=== PATIENT | female | born 1990 | race Caucasian/White ===

== ENCOUNTER 2021-02-20 01:37 | Inpatient (IN) | payer BC, OTHER ==
[2021-02-20] MEDS ORDERED: ACETAMINOPHEN TAB 325 MG TAB PO PRN (02:00)
[2021-02-20] MEDS ORDERED: NALOXONE 0.4 MG/ML 1 ML VIAL IV PRN (02:00)
[2021-02-20] MEDS ORDERED: AMPICILLIN-SULBACTAM 3 GM in SODIUM CHLORIDE 0.9% 100 ML IVPB STA (02:00)
--- NOTE | 2021-02-20 02:02 | ED ---
Recheck HPI - General Chief Complaint: Recheck/Abnormal Lab/Rx Stated Complaint: Appendicitis Time Seen by Provider: 02/20/21 01:59 Source: EMS Mode of arrival: EMS Limitations: no limitations - Related Data Home Medications Medication Instructions Recorded Confirmed Mbe-Apfv-Cuyrd Acid 1 each PO DAILY 01/16/15 05/12/15 [-U Capsule] Previous Rx's Medication Instructions Recorded Acetaminophen-Codeine 300-30mg 1 - 2 each PO Q4HR PRN #30 tab 05/12/15 [Tylenol w/codeine #3] Allergies Allergy/AdvReac Type Severity Reaction Status Date / Time ibuprofen Allergy Anaphylaxis Verified 04/14/15 13:29 Review of Systems ROS Statement: Those systems with pertinent positive or pertinent negative responses have been documented in the HPI. ROS Other: All systems not noted in ROS Statement are negative. Past Medical History Past Medical History: No Reported History History of Any Multi-Drug Resistant Organisms: None Reported Additional Past Surgical History / Comment(s): Patient has a wisdom tooth extraction. Laparoscopic 01/02/21 Past Anesthesia/Blood Transfusion Reactions: No Reported Reaction Past Psychological History: No Psychological Hx Reported Smoking Status: Never smoker Past Alcohol Use History: None Reported Past Drug Use History: None Reported General Exam Limitations: no limitations Course Vital Signs 02/20/21 01:51 Temperature 98.4 F Pulse Rate 106 H Respiratory 20 Rate Blood Pressure 125/78 O2 Sat by Pulse 98 Oximetry Disposition Clinical Impression: Acute appendicitis Disposition: ADMITTED IP TO THIS HOSP Condition: Good Is patient prescribed a controlled substance at d/c from ED?: No Referrals: Nonstaff,Physician [Primary Care Provider] - 1-2 days
[2021-02-20] MEDS: MORPHINE SULFATE 4 MG/ML SYRINGE IV PRN ×4 (03:25→16:48)
[2021-02-20] MEDS: ONDANSETRON 4 MG/2 ML VIAL IVP PRN ×3 (03:25→20:26)
[2021-02-20] MEDS: DEXTROSE 5%-0.45% NACL 1,000 ML IV SCH ×2 (03:25→13:11)
[2021-02-20] MEDS ORDERED: ACETAMINOPHEN IV (For NPO) 1,000 MG in EMPTY BAG 1 BAG IVPB ONE (04:47)
[2021-02-20] MEDS ORDERED: SCOPOLAMINE 1.5MG/72HR PATCH TRANSDERM STA (07:36)
[2021-02-20 08:14] LABS: Basophils # (A) 0.1 k/uL (0-0.2); Basophils % (A) 0 %; Eosinophils # (A) 0.1 k/uL (0-0.7); Eosinophils % (A) 0 %; HGB 13.9 gm/dL (11.4-16.0); Lymphocytes # (A) 1.3 k/uL (1.0-4.8); Lymphocytes % (A) 9 %; MCH 31.1 pg (25.0-35.0); MCV 91.5 fL (80.0-100.0); Mean Platelet Volume 7.9; Monocytes # (A) 0.8 k/uL (0-1.0); Monocytes % (A) 5 %; Neutrophils # (A) 13.3 k/uL (1.3-7.7); Neutrophils % (A) 86 %; Platelet Count 263 k/uL (150-450); RBC 4.48 m/uL (3.80-5.40); RDW 12.6 % (11.5-15.5); WBC 15.6 k/uL (3.8-10.6)
[2021-02-20 08:30] LABS: ALT 11 U/L (4-34); African American GFR (CKD) >90 (>60 ml/min/1.73 sqM); Anion Gap 10 mmol/L; Blood Urea Nitrogen 11 mg/dL (7-17); Calcium 8.5 mg/dL (8.4-10.2); Carbon Dioxide 19 mmol/L (22-30); Chloride 107 mmol/L (98-107); Glucose 122 mg/dL (74-99); Non-African American GFR(CKD) >90 (>60 ml/min/1.73 sqM); Sodium 136 mmol/L (137-145); Total Bilirubin 0.9 mg/dL (0.2-1.3); Total Protein 6.9 g/dL (6.3-8.2)
[2021-02-20 08:35] LABS: AST 33 U/L (14-36); Alkaline Phosphatase 66 U/L (38-126); Potassium 4.9 mmol/L (3.5-5.1)
[2021-02-20] MEDS: PANTOPRAZOLE 40 MG/10 ML VIAL IV SCH (08:53)
[2021-02-20] MEDS: AMPICILLIN-SULBACTAM 3 GM in SODIUM CHLORIDE 0.9% 100 ML IVPB SCH ×2 (11:34→20:29)
--- NOTE | 2021-02-20 12:36 | P.GSHP ---
History of Present Illness H&P Date: 02/20/21 CHIEF COMPLAINT: Right lower quadrant abdominal pain with appendicitis for over 1 day. HISTORY OF PRESENT ILLNESS: The patient 30-year-old female who reports recent history of large ovarian cyst over 10 cm removed via laparoscopic approach over a month and a half ago in 01/03/2021 at [facility] in [place], [place]. She had been recovering. She reported intermittent right lower quadrant abdominal pain for the last few weeks. She reports the pain became severe intensity as of yesterday 1 day ago. She went to [place] emergency room initially where due to long wait times for evaluation, she went to [facility]. She had additional workup demonstrating appendicitis. She transferred to [facility] for surgical intervention. She reports her pain is still moderate to severe. No current emesis or nausea. She is admitted for appendicitis. PAST MEDICAL HISTORY: See list and reviewed PAST SURGICAL HISTORY: See list and reviewed CURRENT MEDICATIONS: See list and reviewed ALLERGIES: See list and reviewed SOCIAL HISTORY: See list and reviewed FAMILY HISTORY: See list and reviewed REVIEW OF ORGAN SYSTEMS: CONSTITUTIONAL: No fever, no chills. She is morbidly obese, BMI 36.5. HEENT: Denies any trouble with vision, hearing or nosebleeds. No difficulty swallowing. LYMPHATIC: The patient denies any lumps and bumps around the neck. ENDOCRINE: Denies any thyroid disorders. Denies any blood sugar glucose intolerance. RESPIRATORY: Denies shortness of breath including chronic cough. CARDIOVASCULAR: Denies history of chest pain with exertion. GASTROINTESTINAL: Denies regurgitation of bile at night as well as intermittent nausea. No blood in stools. GENITOURINARY: Denies any blood in urine or increased urinary frequency. Recent gynecological excision of right ovarian cyst over 10 cm. MUSCULOSKELETAL: Denies current joint arthritis. NEUROLOGIC: Denies any numbness or tingling along the distal extremities. No seizure disorders or headaches. PSYCHIATRIC: Denies any depression or suicidal ideation. HEMATOLOGIC: Denies any abnormal bleeding or bruising. PHYSICAL EXAMINATION: GENERAL: Well-developed female in mild distress. HEENT: No sclera icterus. Extraocular movements grossly intact. Moist buccal mucosa. Head is atraumatic, normocephalic. Hears conversational speech. No nasal drainage. Wears glasses. NECK: Supple without lymphadenopathy. No JV distention. CHEST: Non-labored respirations and equal bilateral excursions. CARDIOVASCULAR: Regular rate and rhythm. Palpable 2+ radial pulses. ABDOMEN: Focal tenderness right lower quadrant. MUSCULOSKELETAL: No clubbing, cyanosis or edema. NEUROLOGIC: No focal or lateralizing signs. PSYCH: Appropriate affect. Alert and oriented to person, place and time. SKIN: Well perfused. Good skin turgor. LABS: Reviewed. White blood cell count elevated over 15,000. UHCG negative. RECORDS: Records from [facility] confirms coronavirus negative. STUDIES: CT of the abdomen and pelvis from the outside facility independently reviewed demonstrating large stool-filled cecum. Large fluid collection cystic will along the right adnexa. Smaller adnexal cystic lesion on the left. Free fluid in the pelvis identified. The base of the appendix is identified to be patent. No gross inflammatory changes suggestive of acute appendicitis. Hounsfield units of adnexa consistent with hemorrhagic cyst RADIOLOGY: I personally called the radiologist Dr. Morrow for similar review of computed tomography scan confirming fluid collection in the pelvis as well as no definitive finding of acute appendicitis. ASSESSMENT: 1. Right lower quadrant pain. 2. History of right ovarian cyst, recurrence 3. Leukocytosis PLAN: 1. Review of her computed tomography scan and in discussion with the radiologist, presentation of right lower quadrant abdominal pain also includes recurrent right ovarian cyst with possible rupture. As the base of the appendix is identifiable without gross inflammatory changes, likely appendicitis is low. 2. Recommend consultation with gynecology for recurrent ovarian cyst. May need transvaginal ultrasound. 3. Continue IV antibiotics. 4. Initially robotic appendectomy was described however given her additional gynecological findings, recommend gynecological assessment. Past Medical History Past Medical History: No Reported History Additional Past Medical History / Comment(s): pcos endometrosis History of Any Multi-Drug Resistant Organisms: None Reported Additional Past Surgical History / Comment(s): Patient has a wisdom tooth extraction. Laparoscopic adhesions and cyst removal 01/02/21 Past Anesthesia/Blood Transfusion Reactions: No Reported Reaction Past Psychological History: No Psychological Hx Reported Smoking Status: Never smoker Past Alcohol Use History: None Reported Past Drug Use History: None Reported - Past Family History Mother History Unknown: Yes Medications and Allergies Home Medications Medication Instructions Recorded Confirmed Type Lo Loestrin 1 tab PO HS 02/20/21 02/20/21 History Multivitamins, Thera [Multivitamin 1 tab PO DAILY 02/20/21 02/20/21 History (formulary)] Ondansetron Odt [Zofran Odt] 4 mg PO Q8H PRN 02/20/21 02/20/21 History metFORMIN HCL [Glucophage] 500 mg PO TID 02/20/21 02/20/21 History Allergies Allergy/AdvReac Type Severity Reaction Status Date / Time ibuprofen Allergy Anaphylaxis Verified 02/20/21 07:07 Surgical - Exam Vital Signs Temp Pulse Resp BP Pulse Ox 98.4 F 106 H 20 125/78 98 02/20/21 01:51 02/20/21 01:51 02/20/21 01:51 02/20/21 01:51 02/20/21 01:51 Results - Labs 02/20/21 07:19 02/20/21 07:19 Abnormal Lab Results - Last 24 Hours (Table) 02/20/21 02/20/21 Range/Units 07:19 07:19 WBC 15.6 H (3.8-10.6) k/uL Neutrophils # 13.3 H (1.3-7.7) k/uL Sodium 136 L (137-145) mmol/L Carbon Dioxide 19 L (22-30) mmol/L Creatinine 0.42 L (0.52-1.04) mg/dL Glucose 122 H (74-99) mg/dL Diabetes panel 02/20/21 Range/Units 07:19 Sodium 136 L (137-145) mmol/L Potassium 4.9 (3.5-5.1) mmol/L Chloride 107 (98-107) mmol/L Carbon Dioxide 19 L (22-30) mmol/L BUN 11 (7-17) mg/dL Creatinine 0.42 L (0.52-1.04) mg/dL Glucose 122 H (74-99) mg/dL Calcium 8.5 (8.4-10.2) mg/dL AST 33 (14-36) U/L ALT 11 (4-34) U/L Alkaline Phosphatase 66 (38-126) U/L Total Protein 6.9 (6.3-8.2) g/dL Albumin 4.0 (3.5-5.0) g/dL Calcium panel 02/20/21 Range/Units 07:19 Calcium 8.5 (8.4-10.2) mg/dL Albumin 4.0 (3.5-5.0) g/dL Pituitary panel 02/20/21 Range/Units 07:19 Sodium 136 L (137-145) mmol/L Potassium 4.9 (3.5-5.1) mmol/L Chloride 107 (98-107) mmol/L Carbon Dioxide 19 L (22-30) mmol/L BUN 11 (7-17) mg/dL Creatinine 0.42 L (0.52-1.04) mg/dL Glucose 122 H (74-99) mg/dL Calcium 8.5 (8.4-10.2) mg/dL Adrenal panel 02/20/21 Range/Units 07:19 Sodium 136 L (137-145) mmol/L Potassium 4.9 (3.5-5.1) mmol/L Chloride 107 (98-107) mmol/L Carbon Dioxide 19 L (22-30) mmol/L BUN 11 (7-17) mg/dL Creatinine 0.42 L (0.52-1.04) mg/dL Glucose 122 H (74-99) mg/dL Calcium 8.5 (8.4-10.2) mg/dL Total Bilirubin 0.9 (0.2-1.3) mg/dL AST 33 (14-36) U/L ALT 11 (4-34) U/L Alkaline Phosphatase 66 (38-126) U/L Total Protein 6.9 (6.3-8.2) g/dL Albumin 4.0 (3.5-5.0) g/dL Assessment and Plan (1) Hemorrhagic ovarian cyst Current Visit: Yes Status: Acute Code(s): N83.209 - UNSPECIFIED OVARIAN CYST, UNSPECIFIED SIDE SNOMED Code(s): 683196064 (2) Morbid obesity due to excess calories Current Visit: Yes Status: Acute Code(s): E66.01 - MORBID (SEVERE) OBESITY DUE TO EXCESS CALORIES SNOMED Code(s): 615591232 (3) BMI over 35 Current Visit: Yes Status: Acute Code(s): XQA7450 - SNOMED Code(s): 429623804
[2021-02-20] MEDS: ENOXAPARIN 30 MG/0.3 ML SYRINGE SQ SCH (13:42)
[2021-02-20] MEDS: KETOROLAC 15 MG/ML 1 ML VIAL IVP SCH (18:49)
[2021-02-20] MEDS ORDERED: PROPOFOL 10 MG/ML 20 ML VIAL IV ONE (22:13)
[2021-02-20] MEDS ORDERED: NEOSTIGMINE 1 MG/ML 10 ML VIAL ONE (22:13)
[2021-02-20] MEDS ORDERED: HYDROmorphone (PF) 1 MG/ML ONE (22:13)
[2021-02-20] MEDS ORDERED: ROCURONIUM 10 MG/ML (5 ML VIAL) IV ONE (22:13)
[2021-02-20] MEDS ORDERED: GLYCOPYRROLATE 0.2 MG/ML 2 ML VIAL ONE (22:13)
[2021-02-20] MEDS ORDERED: ONDANSETRON 4 MG/2 ML VIAL ONE (22:13)
[2021-02-20] MEDS ORDERED: LIDOCAINE 1% INJ 10MG/ML (20 ML MDV) ONE (22:13)
[2021-02-20] MEDS ORDERED: DEXAMETHASONE SOD PHOSPHATE 4 MG/ML 1 ML VIAL ONE (22:13)
[2021-02-20] MEDS ORDERED: KETOROLAC 15 MG/ML 1 ML VIAL ONE (22:13)
[2021-02-20] MEDS ORDERED: fentaNYL (PF) 50 MCG/ML 2 ML AMP ONE (22:13)
[2021-02-20] MEDS ORDERED: MIDAZOLAM 2 MG/2 ML VIAL ONE (22:13)
[2021-02-20] MEDS ORDERED: SUCCINYLCHOLINE CHLORIDE 100 MG/5 ML SYR IV ONE (22:13)
[2021-02-20] MEDS ORDERED: LACTATED RINGERS 1,000 ML IV ONE ×2 (22:16→22:47)
--- NOTE | 2021-02-20 22:21 | P.HPADDEND ---
H&P Addendum H&P Addendum Date: 02/20/21 Computed tomography scan findings discussed for recurrent ovarian cysts. Patient reports peritonitis due to her recurrent ovarian cyst. With her recurrent right lower quadrant abdominal pain, patient agreed to proceed with appendectomy and abdominal washout for free fluid and hemoperitoneum. Managemen t for recurrent ovarian cyst with inspector floor advised
[2021-02-20] MEDS ORDERED: LIDOCAINE 0.5%-EPI 1:200,000 50 ML VIAL SQ ONE (22:57)
--- NOTE | 2021-02-20 23:36 | P.OP ---
Date of Procedure: 02/20/21 Description of Procedure: SURGEON: GINA BLAS MD Preoperative Diagnosis: 1. Right lower quadrant abdominal pain with peritonitis 2. History of ovarian cysts 3. Endometriosis of the pelvis 4. Morbid obesity due to excess calories, BMI 36.5 5. Leukocytosis Postoperative Diagnosis: 1. Hemoperitoneum with appendicitis due to endometriosis with peritonitis 2. History of ovarian cysts 3. Endometriosis diffuse 4. Morbid obesity due to excess calories, BMI 36.5 5. Leukocytosis 6. Ruptured ovarian hemorrhagic cyst Procedure(s) Performed: 1. Robotic-assisted daVinci Xi diagnostic laparoscopy with drainage of hemoperitoneum, 200 mL. 2. Robotic-assisted daVinci Xi laparoscopic appendectomy Anesthesia: GETA, local Estimated Blood Loss (ml): 5 Pathology: other (appendix) Condition: stable Disposition: floor Operative Findings: 1. At appendiceal tip, large endometrial deposit over 4 cm at right lower quadrant consistent with location of pain 2. Gross hemoperitoneum over 200 mL evacuated 3. Endometrial deposit of the pelvis including ascending colon, cecum, right upper abdominal wall 4. Right ovary without torsion with features of recent ruptured hemorrhagic cyst INDICATIONS: The patient is a 30-year-old female who presents with peritonitis, right lower quadrant abdominal pain. Diagnostic laparoscopy with appendectomy was described. Benefits and risks, including infection, open surgery, and bleeding for additional surgery was discussed at length. Informed consent was obtained. All questions of the patient and family were answered. DESCRIPTION: The patient was transferred to the operating room and placed in supine position. The patient had previously voided. The abdomen was then prepped and draped in standard sterile fashion as Ioban was placed along the abdomen to minimize any contamination of skin floor. After a timeout protocol was performed, attention was then brought to the left upper quadrant whereby a 0 degree 5 mm laparoscopic trocar entry was performed. The abdominal cavity was entered and insufflated to 12 mmHg pressure, which was tolerated well. Diagnostic laparoscopy demonstrated no injury to bowel, viscera or mesentery. Next a robotic 8-mm trocar was placed along the left lower quadrant, 10-cm lateral to the midline. A 12 mm port was placed along the left upper quadrant and another 8-mm port left lateral abdominal wall. Ports were placed 8 cm apart from each other including 15-20 cm away from the target anatomy of the right pelvis. The patient was then placed in Trendelenburg position, at least 7 down and right side up at least 7. The robotic da Syeda XI system was primed and [facility] Using atraumatic graspers and vessel sealer, the robotic system was docked and primed as described. Instruments were interchanged by the assistant art director including graspers, robotic stapler and vessel sealer. Next, attention was brought to identify the cecum. A systematic view within the abdominal cavity was started with the small bowel which was unremarkable. Moderate hemoperitoneum was identified along the pelvis of gross blood. At the cecum, endometrial deposit was found. Along the right upper quadrant abdominal wall and flank, endometrial deposits were found. The small bowel was unremarkable for acute pathology such as bowel obstruction. The colon including splenic flexure; redundant. The uterus was boggy and enlarged. Chocolate cyst were identified along the retrouterine peritoneal space. Attention was brought to the appendiceal base where a short less than 3 cm appendix was found with a large endometrial deposit over 4 cm. The mesoappendix was mobilized using vessel sealer. Blue 45 mm robotic staple loads were fired along the base of the appendix. The staple line was hemostatic. Hemostasis was checked prior to undocking the robot. Next, the abdomen was irrigated with 2 L normal saline solution until the abdominal fluid was clear. The robot was undocked. I re-scrubbed into the case. The specimen was removed from the abdominal cavity with an Endo Catch bag through the 12 mm trocar at the left upper quadrant. The port site was closed with 0 Vicryl and Eagle Segura. All instruments and pneumoperitoneum were evacuated from the abdominal cavity. Local anesthetic was infiltrated to all wounds for postop analgesia. All incisions were also cleansed with diluted hydrogen peroxide. The incisions were closed with 4-0 Monocryl. Exofin glue was applied to the rest of the skin incisions. The patient had tolerated the procedure well. The patient was extubated successfully. The patient was transferred to the postanesthesia care unit in stable condition. The patient's family were updated of the findings and please with the level of care.
[2021-02-20] MEDS ORDERED: HYDROmorphone 0.5 MG/0.5 ML SYRINGE IVP ONE (23:40)
[2021-02-21] MEDS: DEXTROSE 5%-0.45% NACL 1,000 ML IV SCH ×2 (00:30→09:02)
[2021-02-21] MEDS: KETOROLAC 15 MG/ML 1 ML VIAL IVP SCH ×3 (00:31→12:00)
[2021-02-21] MEDS: ONDANSETRON 4 MG/2 ML VIAL IVP PRN ×3 (01:30→12:01)
[2021-02-21] MEDS: SIMETHICONE 40 MG/0.6 ML DROPS 2,000 MG/30 ML BOTTLE PO SCH ×2 (01:31→09:06)
[2021-02-21] MEDS: AMPICILLIN-SULBACTAM 3 GM in SODIUM CHLORIDE 0.9% 100 ML IVPB SCH ×2 (02:57→11:29)
[2021-02-21 03:16] VITALS: RESP 18
[2021-02-21 06:39] LABS: Basophils % (A) 0 %; Eosinophils % (A) 1 %; HCT 37.4 % (34.0-46.0); HGB 12.9 gm/dL (11.4-16.0); Lymphocytes # (A) 0.6 k/uL (1.0-4.8); Lymphocytes % (A) 8 %; MCH 31.5 pg (25.0-35.0); MCHC 34.5 g/dL (31.0-37.0); MCV 91.2 fL (80.0-100.0); Mean Platelet Volume 7.8; Monocytes # (A) 0.3 k/uL (0-1.0); Monocytes % (A) 4 %; Neutrophils # (A) 6.3 k/uL (1.3-7.7); Neutrophils % (A) 87 %; Platelet Count 258 k/uL (150-450); RDW 12.5 % (11.5-15.5); WBC 7.3 k/uL (3.8-10.6)
[2021-02-21 07:43] LABS: ALT 9 U/L (4-34); AST 21 U/L (14-36); African American GFR (CKD) >90 (>60 ml/min/1.73 sqM); Albumin 3.3 g/dL (3.5-5.0); Alkaline Phosphatase 70 U/L (38-126); Anion Gap 8 mmol/L; Blood Urea Nitrogen 5 mg/dL (7-17); Calcium 8.5 mg/dL (8.4-10.2); Carbon Dioxide 23 mmol/L (22-30); Chloride 108 mmol/L (98-107); Glucose 142 mg/dL (74-99); Non-African American GFR(CKD) >90 (>60 ml/min/1.73 sqM); Phosphorus 2.6 mg/dL (2.5-4.5); Potassium 4.2 mmol/L (3.5-5.1); Sodium 139 mmol/L (137-145); Total Bilirubin 0.4 mg/dL (0.2-1.3); Total Protein 5.9 g/dL (6.3-8.2)
[2021-02-21 08:24] VITALS: BP 99/62; PULSE 87; TEMP 98.2
[2021-02-21] MEDS ORDERED: metFORMIN 500 MG TAB PO SCH (09:00)
[2021-02-21] MEDS: PANTOPRAZOLE 40 MG/10 ML VIAL IV SCH (09:04)
[2021-02-21] MEDS: ENOXAPARIN 30 MG/0.3 ML SYRINGE SQ SCH (09:06)
--- NOTE | 2021-02-21 14:14 | P.DS ---
Providers Date of admission: 02/20/21 23:37 Expected date of discharge: 02/21/21 Attending physician: Cindy Savage Primary care physician: Physician Nonstaff Hospital Course: Discharge diagnosis 1. Hemoperitoneum with appendicitis due to endometriosis with peritonitis 2. History of ovarian cysts 3. Endometriosis diffuse 4. Morbid obesity due to excess calories, BMI 36.5 5. Leukocytosis 6. Ruptured ovarian hemorrhagic cyst Hospital course The patient 30-year-old female who reports recent history of large ovarian cyst over 10 cm removed via laparoscopic approach over a month and a half ago in 01/03/2021 at [facility] in [place], [place]. She had been recovering. She reported intermittent right lower quadrant abdominal pain for the last few weeks. She reports the pain became severe intensity as of yest rachel 1 day ago. She went to [place] emergency room initially where due to long wait times for evaluation, she went to [facility]. She had additional workup demonstrating appendicitis. She transferred to [facility] for surgical intervention. She reports her pain is still moderate to severe. No current emesis or nausea. She is admitted for appendicitis. Patient is status post Robotic-assisted daVinci Xi diagnostic laparoscopy with drainage of hemoperitoneum, 200 mL and Robotic-assisted daVinci Xi laparoscopic appendectomy. Patient tolerated surgery well. Her pain is controlled. She is tolerating diet. She has had a bowel movement and passed gas. Denies any difficulty urinating. She has been up and ambulating. She is afebrile. She is stable for discharge. Physician Volleyball Assistant Coach note has been reviewed by physician. Signing provider agrees with the documented findings, assessment, and plan of care. Patient Condition at Discharge: Stable Plan - Discharge Summary Discharge Rx Participant: Yes New Discharge Prescriptions: New Ibuprofen [Motrin] 600 mg PO Q8HR PRN #30 tab PRN Reason: Pain Acetaminophen Tab [Tylenol Tab] 650 mg PO Q4H PRN #30 tablet PRN Reason: Pain Continue Ondansetron Odt [Zofran ODT] 4 mg PO Q8H PRN PRN Reason: Nausea Multivitamins, Thera [Multivitamin (formulary)] 1 tab PO DAILY metFORMIN HCL [Glucophage] 500 mg PO TID Lo Loestrin 1 tab PO HS Discharge Medication List Lo Loestrin 1 tab PO HS 02/20/21 [History] Multivitamins, Thera [Multivitamin (formulary)] 1 tab PO DAILY 02/20/21 [History] Ondansetron Odt [Zofran ODT] 4 mg PO Q8H PRN 02/20/21 [History] metFORMIN HCL [Glucophage] 500 mg PO TID 02/20/21 [History] Acetaminophen Tab [Tylenol Tab] 650 mg PO Q4H PRN #30 tablet 02/21/21 [Rx] Ibuprofen [Motrin] 600 mg PO Q8HR PRN #30 tab 02/21/21 [Rx] Follow up Appointment(s)/Referral(s): Nonstaff,Physician [Primary Care Provider] - 1-2 days Cindy Savage MD [STAFF PHYSICIAN] - 02/28/21 Activity/Diet/Wound Care/Special Instructions: No lifting over 4 pounds in 4 weeks until March 20. March shower. No bath tub soaks for two weeks unil March 06 Avoid steak, tough meats and seeds such as raspberry seeds. Use Tylenol and ibuprofen scheduled for the next 24-48 hours for best pain relief. Use ice along incisions for the today to prevent swelling. Discharge Disposition: HOME SELF-CARE
[2021-02-21] MEDS ORDERED: LO LOESTRIN PO SCH (21:00)
== END 2021-02-21 14:40 | disposition home or self-care (01) | DRG 341 ==
LOC: SUPCPDRO 01:37 → EC 01:37 → 6PED 02:00 → OBSVTOIN 23:37
PROVIDERS: ADMIT Surgery Plastic and Reconstructive Surgery; ATTEND Surgery Plastic and Reconstructive Surgery
PROC: 0W9G4ZZ Drainage of Peritoneal Cavity, Percutaneous Endoscopic Approach (ICD-10-PCS; 2021-02-20)
PROC: 8E0W4CZ Robotic Assisted Procedure of Trunk Region, Percutaneous Endoscopic Approach (ICD-10-PCS; 2021-02-20)
PROC: 0DTJ4ZZ Resection of Appendix, Percutaneous Endoscopic Approach (ICD-10-PCS; principal; 2021-02-20 14:10)
DX: K35.30 Acute appendicitis with localized peritonitis, without perforation or gangrene (principal); K66.1 Hemoperitoneum; N83.209 Unspecified ovarian cyst, unspecified side; E66.01 Morbid (severe) obesity due to excess calories; Z68.36 Body mass index [BMI] 36.0-36.9, adult; N80.3 Endometriosis of pelvic peritoneum; Z79.84 Long term (current) use of oral hypoglycemic drugs
CPT/HCPCS: 80053; 81025; 83735; 84100; 85025; 99284